=== PATIENT | female | born 1990 | race Caucasian/White ===

== ENCOUNTER 2016-08-06 18:42 | Observation (INO) | payer SELFPAY ==
[~2016-08-06 18:42] MED LIST: CALCIUM CARBON500 M2 PO; CEPHALEXIN MON500 MG; CIPRO500 MG PO; COLACE100 M1 PO; IBUPROFEN800 M1 PO; IRON; IRON325 M3 PO; KEFLEX500 MG PO; MILK OF MAGNESIA PO; NAPHCON-A EYE D15 M1 OP; NO HOME MEDICATION XX; NO HOME MEDS; NORCO 5/325 TAB1 TAB PO; PRENATAL1 EACH PO; PROMETHAZINE V120 M1 PO; PROMETHAZINE-C120 ML PO; PYRIDIUM200 M1 PO; VISTARIL25 M1 PO; ZOFRAN ODT4 MG/UDTAB PO; ZOFRAN4 M2 PO
== END 2016-08-06 21:48 ==
LOC: LDR 18:42
PROVIDERS: ADMIT Obstetrics & Gynecology
DX: O47.03 False labor before 37 completed weeks of gestation, third trimester (principal); Z3A.34 34 weeks gestation of pregnancy